=== PATIENT | male | born 1965 | race American Indian/Alaskan Native ===

== ENCOUNTER 2016-10-08 01:59 | Emergency (ER) | payer OTHER ==
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
--- NOTE | 2016-10-08 04:10 | XRay Report ---
FINAL REPORT EXAM: XR KNEE 1-2V LT HISTORY: knee injury.....LT KNEE INJURY COMPARISONS: None. FINDINGS: AP and lateral views left knee Anatomic alignment is present without acute fracture or joint effusion. Joint spaces are preserved and subchondral surfaces are smooth. Punctate medial knee calcifications may be within the MCL. Alignment is anatomic. IMPRESSION: No left knee malalignment or acute finding.
[2016-10-08] MEDS ORDERED: TRIPLE ANTIBIOTIC TP ONE (05:52)
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
[2016-10-08 06:59] VITALS: BP 159/87
== END 2016-10-08 06:58 | disposition home or self-care (01) ==
LOC: ED 01:59
DX: S93.492A Sprain of other ligament of left ankle, initial encounter (principal); S80.212A Abrasion, left knee, initial encounter; S90.512A Abrasion, left ankle, initial encounter; S90.852A Superficial foreign body, left foot, initial encounter; S60.512A Abrasion of left hand, initial encounter; V49.49XA Driver injured in collision with other motor vehicles in traffic accident, initial encounter; Y93.9 Activity, unspecified; Y92.9 Unspecified place or not applicable; Y99.9 Unspecified external cause status
CPT/HCPCS: A6250